=== PATIENT | male | born 1970 | race Caucasian/White ===

== ENCOUNTER 2021-07-16 14:08 | Outpatient (CLI) | payer MEDICAID | END 2021-07-16 14:09 | disposition short-term general hospital (02) | LOC: EMS 14:08 | DX: M54.50 Low back pain, unspecified (principal); R10.2 Pelvic and perineal pain; M25.551 Pain in right hip; S81.811A Laceration without foreign body, right lower leg, initial encounter; S00.81XA Abrasion of other part of head, initial encounter; R55 Syncope and collapse; V02.00XA Pedestrian on foot injured in collision with two- or three-wheeled motor vehicle in nontraffic accident, initial encounter; Y92.39 Other specified sports and athletic area as the place of occurrence of the external cause | CPT/HCPCS: A0425; A0429; A0999 ==

== ENCOUNTER 2022-01-15 07:42 | Outpatient (CLI) | payer MEDICAID | END 2022-01-15 07:43 | disposition critical access hospital (66) | LOC: EMS 07:42 | DX: R11.2 Nausea with vomiting, unspecified (principal); R10.84 Generalized abdominal pain; R10.817 Generalized abdominal tenderness; R53.1 Weakness; R15.9 Full incontinence of feces | CPT/HCPCS: A0425; A0429; A0999 ==

== ENCOUNTER 2022-01-15 08:12 | Observation (INO) | payer MEDICAID ==
[2022-01-15] MEDS ORDERED: HYDROmorphone 1 MG/ML CARPUJECT IVP STA ×2 (08:22→12:03)
[2022-01-15] MEDS ORDERED: ONDANSETRON 4 MG/2 ML VIAL IVP STA ×2 (08:22→13:22)
[2022-01-15] MEDS ORDERED: SODIUM CHLORIDE 0.9% 1,000 ML IV STA (08:22)
--- NOTE | 2022-01-15 08:22 | ED Physician Documentation ---
PD HPI ABD PAIN - Stated complaint Stated Complaint: N/V - History obtained from History obtained from: Patient - History of Present Illness Timing - onset: Last night (Diffuse abdominal pain with N/V and diarrhea starting last night at 8pm. multiple emesis and loose stools. unable to keep anything down. Hx of recent pelvic Fx spent 3 months at [facility], colon cancer, and inflam bowel disease.) Timing - duration: Hours (12) Timing - details: Abrupt onset, Still present Quality: Cramping, Aching, Pain Location: All over / everywhere Radiation: Lower back. No: Chest, Left flank, Right flank Improved by: Vomiting Worsened by: Eating. No: Breathing, Palpation Associated symptoms: Nausea, Vomiting. No: Fever, Hematemesis, Diarrhea (but has had small amounts of loose stool.), Constipation, Hematochezia Similar symptoms before: Diagnosis (had similar brief episodes for few hours at a time in the past without specific diagnosis of the episodes. But has had colonscopy findings suggestive of Crohns disease in the past year. Has GI in [facility]. Planned repeat colonoscopy in about a month. No current treatments for IBD.) Recently seen: Admitted (had pelvic fracture early 2021 and was in [facility]. There was found to have colon CA that was treated with polypectomy and colonoscopic colon wall resection. Since then has davis abd cramping episodes with Dx of likely Crohns by that colonoscopy.) Review of Systems Constitutional: denies: Fever, Chills Nose: denies: Rhinorrhea / runny nose, Congestion Throat: denies: Sore throat Respiratory: denies: Cough GI: reports: Abdominal Pain, Abdominal Swelling, Nausea, Vomiting. denies: Constipation, Diarrhea, Hematemesis : denies: Dysuria, Frequency Skin: denies: Rash Musculoskeletal: denies: Neck pain, Back pain PD PAST MEDICAL HISTORY - Past Medical History Cardiovascular: None Respiratory: None Neuro: None Endocrine/Autoimmune: None GI: Crohn's disease - Present Medications Home Medications: Ambulatory Orders Medication Instructions Recorded Confirmed Apixaban [Eliquis] 5 mg PO BID 01/15/22 01/15/22 Atorvastatin Calcium 40 mg PO QPM 01/15/22 01/15/22 Escitalopram Oxalate [Lexapro] 20 mg PO DAILY 01/15/22 01/15/22 Lisinopril [Zestril] 40 mg PO DAILY 01/15/22 01/15/22 amLODIPine [Norvasc] 5 mg PO DAILY 01/15/22 01/15/22 - Allergies Allergies/Adverse Reactions: Allergies Allergy/AdvReac Type Severity Reaction Status Date / Time No Known Drug Allergies Allergy Verified 01/15/22 08:24 PD ED PE NORMAL - Vitals Vital signs reviewed: Yes - General General: Alert and oriented X 3, Well developed/nourished, Other (he appears in considerable discomfort due to abd pain, and is having emesis of small amounts stomach saliva/bile. No noted blood. ) - HEENT HEENT: Pharynx benign - Neck Neck: Supple, no meningeal sign, No adenopathy - Cardiac Cardiac: RRR, No murmur - Respiratory Respiratory: Clear bilaterally - Abdomen Abdomen: Soft, Other (tender difusely, but most in LLQ area. Abd moderately distended. Umbilical hernia soft and easily reducible, without tenderness. ). No: Normal bowel sounds (increased diffusely) - Male Male : Deferred - Rectal Rectal: Deferred - Back Back: No CVA TTP - Derm Derm: Normal color, Warm and dry Results - Vitals Vitals: Vital Signs - 24 hr 01/15/22 01/15/22 01/15/22 08:24 09:12 11:00 Temperature 36.9 C Heart Rate 96 100 91 Respiratory 20 18 18 Rate Blood Pressure 126/86 H 90/61 149/96 H O2 Saturation 97 97 96 01/15/22 13:00 Temperature Heart Rate 86 Respiratory 16 Rate Blood Pressure 140/90 H O2 Saturation 94 Oxygen O2 Source Room air - Labs Labs: Laboratory Tests 01/15/22 01/15/22 01/15/22 08:50 08:50 08:50 WBC 16.9 H RBC 4.72 Hgb 12.8 L Hct 40.9 L MCV 86.7 MCH 27.1 MCHC 31.3 L RDW 15.3 H Plt Count 369 MPV 9.0 Neut # (Auto) 15.1 H Lymph # (Auto) 0.8 L Power # (Auto) 0.9 Eos # (Auto) 0.0 Baso # (Auto) 0.0 Absolute Nucleated RBC 0.00 Nucleated RBC % 0.0 Sodium 138 Potassium 4.0 Chloride 101 Carbon Dioxide 25 Anion Gap 12.0 BUN 15 Creatinine 1.1 Estimated GFR (MDRD) 71 L Glucose 136 H Lactic Acid 1.7 Calcium 8.3 L Magnesium 1.9 Total Bilirubin 1.4 H AST 12 ALT 13 Alkaline Phosphatase 86 Total Protein 5.8 L Albumin 2.8 L Globulin 3.0 Albumin/Globulin Ratio 0.9 L Lipase 23 Urine Color Urine Clarity Urine pH Ur Specific Frederick Urine Protein Urine Glucose (UA) Urine Ketones Urine Occult Blood Urine Nitrite Urine Bilirubin Urine Urobilinogen Ur Leukocyte Esterase Ur Microscopic Review Urine Culture Comments 01/15/22 12:30 WBC RBC Hgb Hct MCV MCH MCHC RDW Plt Count MPV Neut # (Auto) Lymph # (Auto) Power # (Auto) Eos # (Auto) Baso # (Auto) Absolute Nucleated RBC Nucleated RBC % Sodium Potassium Chloride Carbon Dioxide Anion Gap BUN Creatinine Estimated GFR (MDRD) Glucose Lactic Acid Calcium Magnesium Total Bilirubin AST ALT Alkaline Phosphatase Total Protein Albumin Globulin Albumin/Globulin Ratio Lipase Urine Color YELLOW Urine Clarity CLEAR Urine pH 5.5 Ur Specific Frederick 1.015 Urine Protein NEGATIVE Urine Glucose (UA) NEGATIVE Urine Ketones NEGATIVE Urine Occult Blood NEGATIVE Urine Nitrite NEGATIVE Urine Bilirubin NEGATIVE Urine Urobilinogen 0.2 (NORMAL) Ur Leukocyte Esterase NEGATIVE Ur Microscopic Review NOT INDICATED Urine Culture Comments NOT INDICATED - Rads (name of study) abd/pelvic CT Radiology: Prelim report reviewed (dilated loops air/fluid proximal small bowel c/w partial obstruction, and thickened wall distal small bowel c/w inflammatory enteritis.), See rad report PD MEDICAL DECISION MAKING - ED course Complexity details: reviewed results (partial obstruction with segment of enteritis/wall thickening. with history of Crohns likely, would presume inflammatory flare with pseudo-obstruction. ), considered differential, d/w family ED course: The patient presented with abdominal pain and cramping with nausea and vomiting. History of possible Crohn's versus inflammatory bowel disease. Has seen gastroenterology at [facility] once and is planned for repeat colonoscopy in the near future. Has had some episodes briefly of similar symptoms but today was more significant and lasting. He is improved with some IV fluids pain and nausea medicines. CT scan showed a partial obstruction with lower bowel inflammation. Presume a pseudoobstruction from inflammatory bowel disease. Does not appear surgical per se. He was offered some juice and water to drink after symptoms had improved. However this caused increased pain and cramps and nausea again. I think you will need further time for resolution of symptoms along with anti-inflammatories etc. I talked with the hospitalist. Departure - Departure Disposition: ED Place in Observation Clinical Impression: IBD (inflammatory bowel disease), Nausea and vomiting, Partial intestinal obstruction Condition: Stable Record reviewed to determine appropriate education?: Yes Discharge Date/Time: 01/15/22 15:05
[2022-01-15] MEDS ORDERED: IOPAMIDOL-300 100 ML VIAL ONE (08:47)
[2022-01-15 08:55] LABS: BASOPHILS % (AUTO) 0.2 %; HCT - HEMATOCRIT 40.9 % (42.0-52.0); HGB - HEMOGLOBIN 12.8 g/dL (14.0-18.0); LYMPHOCYTES # (AUTO) 0.8 10^3/uL (1.5-3.5); LYMPHOCYTES % (AUTO) 4.9 %; MEAN CORPUSCULAR HEMOGLOBIN 27.1 pg (27.0-31.0); MEAN CORPUSCULAR HGB CONC 31.3 g/dL (32.0-36.0); MEAN CORPUSCULAR VOLUME 86.7 fL (80.0-94.0); MONOCYTES # (AUTO) 0.9 10^3/uL (0.0-1.0); MONOCYTES % (AUTO) 5.3 %; NEUTROPHILS # (AUTO) 15.1 10^3/uL (1.5-6.6); NEUTROPHILS % (AUTO) 89.1 %; PLT - PLATELET COUNT 369 10^3/uL (130-450); RED BLOOD COUNT 4.72 10^6/uL (4.70-6.10); RED CELL DISTRIBUTION WIDTH 15.3 % (12.0-15.0); WHITE BLOOD COUNT 16.9 x10^3/uL (4.8-10.8)
[2022-01-15 09:11] LABS: ALBUMIN 2.8 g/dL (3.2-5.5); ALBUMIN/GLOBULIN RATIO 0.9 (1.0-2.2); BILIRUBIN,TOTAL 1.4 mg/dL (0.2-1.0); CALCIUM 8.3 mg/dL (8.5-10.3); CREATININE 1.1 mg/dL (0.6-1.2); MAGNESIUM 1.9 mg/dL (1.7-2.8); TOTAL PROTEIN 5.8 g/dL (6.7-8.2)
--- NOTE | 2022-01-15 11:14 | CT Report ---
PROCEDURE: Abdomen/Pelvis W INDICATIONS: abd pain/vomiting CONTRAST: IV CONTRAST: Isovue 300 ml: 100 PO CONTRAST: *NO PO CONTRAST TECHNIQUE: After the administration of IV contrast, 5 mm thick sections acquired from the diaphragms to the symp hysis. 5 mm thick coronal and sagittal reformats were acquired. For radiation dose reduction, the f ollowing was used: automated exposure control, adjustment of mA and/or kV according to patient size. COMPARISON: None. FINDINGS: Image quality: Excellent. ABDOMEN: Lung bases: Lung bases are clear. Heart size is normal. Solid organs: Liver is enlarged measuring 22.7 cm with steatosis. The spleen is normal in size and e nhancement. Gallbladder is unremarkable Biliary system is non dilated. Pancreas enhances normally. No adrenal nodules. Kidneys demonstrate normal size and enhancement, without hydronephrosis. Peritoneum and bowel: Bowel loops demonstrate fluid-filled prominence measuring 4.8 cm in greatest A P dimension. There is appearance of thickening with inflammatory change within the small bowel in the right lower quadrant. No free air or free fluid. Nodes and vessels: No retroperitoneal or mesenteric adenopathy by size criteria. Aorta and inferior vena cava are normal in size. Miscellaneous: Fat-containing ventral hernia is present with rectus diastases measuring 5.3 cm. PELVIS: Genitourinary: Bladder wall thickness is normal. Miscellaneous: No inguinal hernias or adenopathy. Bones: No suspicious bony lesions. No vertebral body compression fractures. IMPRESSION: Dilated fluid-filled loops of small bowel most consistent with partial small bowel obstruction. Short segment loop of thickening with inflammatory change within the small bowel in the right lower quadra nt possibly related to enteritis/inflammatory bowel disease. Reviewed by: Meryl Alvarez MD on 01/15/2022 10:13 AM L[employer]IA Approved by: Meryl Alvarez MD on 01/15/2022 10:13 AM LIGIA Station ID: [id number]
[2022-01-15] MEDS ORDERED: KETOROLAC 30 MG/ML VIAL IVP STA (11:21)
[2022-01-15] MEDS ORDERED: DEXAMETHASONE 10 MG/ML VIAL IVP STA (12:03)
[2022-01-15] MEDS ORDERED: ACETAMINOPHEN 325 MG TABLET PO PRN (13:26)
[2022-01-15] MEDS ORDERED: ONDANSETRON 4 MG/2 ML VIAL IVP PRN (13:26)
[2022-01-15] MEDS ORDERED: ONDANSETRON ODT 4 MG TABLET TL PRN (13:26)
[2022-01-15] MEDS ORDERED: SODIUM CHLORIDE FLUSH 0.9% 10 ML SYRINGE IVP PRN (13:26)
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
[2022-01-15 13:55] LABS: BILIRUBIN,URINE NEGATIVE (NEGATIVE); GLUCOSE, URINE (UA) NEGATIVE (NEGATIVE); KETONES,URINE (UA) NEGATIVE (NEGATIVE); LEUKOCYTE ESTERASE, URINE NEGATIVE (NEGATIVE); NITRITE,URINE NEGATIVE (NEGATIVE); OCCULT BLOOD,URINE NEGATIVE (NEGATIVE); PH,URINE 5.5 PH (5.0-7.5); PROTEIN,URINE NEGATIVE (NEGATIVE); UROBILINOGEN,URINE 0.2 (NORMAL) E.U./dL (NORMAL)
[2022-01-15 13:57] LABS: CLARITY,URINE CLEAR (CLEAR)
[2022-01-15 14:33] LABS: B. PARAPERTUSSIS- RESP PCR PAN NOT DETECTED; B. PERTUSSIS- RESP PCR PANEL NOT DETECTED; C. PNEUMONIAE- RESP PCR PANEL NOT DETECTED; CORONAVIRUS 229E-RESP PCR NOT DETECTED; CORONAVIRUS HKU1-RESP PCR NOT DETECTED; CORONAVIRUS NL63-RESP PCR NOT DETECTED; CORONAVIRUS OC43-RESP PCR NOT DETECTED; HUMAN METAPNEUMOVIRUS NOT DETECTED; INFLUENZA A- RESP PCR PANEL NOT DETECTED; INFLUENZA B - RESP PCR PANEL NOT DETECTED; M. PNEUMONIAE- RESP PCR PANEL NOT DETECTED; PARAINFLUENZA VIRUS 1 NOT DETECTED; PARAINFLUENZA VIRUS 2 NOT DETECTED; PARAINFLUENZA VIRUS 3 NOT DETECTED; PARAINFLUENZA VIRUS 4 NOT DETECTED; RHINOVIRUS/ENTEROVIRUS NOT DETECTED; RSV- RESP PCR PANEL NOT DETECTED; SARS-CoV-2 -RESP PCR PANEL NOT DETECTED
[2022-01-15] MEDS ORDERED: IOPAMIDOL-300 100 ML VIAL IVP ONE (14:39)
[2022-01-15] MEDS: DEXTROSE 5%-0.9% NACL 1,000 ML IV SCH ×2 (15:11→23:57)
--- NOTE | 2022-01-15 15:47 | PHARMACY PROGRESS NOTE ---
- Best Possible Medication History Admit Date and Time: 01/15/22 1326 Processed by: Pharmacy Medication History completed: Yes Patient Interview: Completed Secondary Source(s): Pharmacy records, Insurance records As the person ultimately responsible for medication therapy, providers are able to order a medication from an existing home medication list in [facility] via the "Reconcile Routine" prior to Confirmation of that medication by child support specialist. Such practice is discouraged except when the physician, in their clinical judgment, deems that a medical need exists for a medication without regard to previous use.
[2022-01-15] MEDS: MORPHINE 2 MG/ML CARPUJECT IVP PRN ×2 (16:21→21:55)
[2022-01-15] MEDS: SODIUM CHLORIDE FLUSH 0.9% 10 ML SYRINGE IVP SCH ×2 (16:21→23:58)
[2022-01-15] MEDS: APIXABAN 5 MG TABLET PO SCH (20:35)
[2022-01-15] MEDS ORDERED: ATORVASTATIN 40 MG TABLET PO SCH (21:00)
[2022-01-16 08:47] LABS: HCT - HEMATOCRIT 36.5 % (42.0-52.0); HGB - HEMOGLOBIN 11.2 g/dL (14.0-18.0); LYMPHOCYTES % (AUTO) 13.3 %; MEAN CORPUSCULAR HEMOGLOBIN 26.9 pg (27.0-31.0); MEAN CORPUSCULAR HGB CONC 30.7 g/dL (32.0-36.0); MEAN CORPUSCULAR VOLUME 87.7 fL (80.0-94.0); MONOCYTES # (AUTO) 0.7 10^3/uL (0.0-1.0); MONOCYTES % (AUTO) 9.8 %; NEUTROPHILS # (AUTO) 5.5 10^3/uL (1.5-6.6); NEUTROPHILS % (AUTO) 76.8 %; PLT - PLATELET COUNT 333 10^3/uL (130-450); RED BLOOD COUNT 4.16 10^6/uL (4.70-6.10); RED CELL DISTRIBUTION WIDTH 15.2 % (12.0-15.0); WHITE BLOOD COUNT 7.1 x10^3/uL (4.8-10.8)
[2022-01-16] MEDS: APIXABAN 5 MG TABLET PO SCH (08:47)
[2022-01-16] MEDS: SODIUM CHLORIDE FLUSH 0.9% 10 ML SYRINGE IVP SCH (08:51)
[2022-01-16] MEDS ORDERED: lisinopriL 20 MG TABLET PO SCH (09:00)
[2022-01-16] MEDS ORDERED: ESCITALOPRAM 10 MG TABLET PO SCH (09:00)
[2022-01-16 09:07] LABS: CALCIUM 8.1 mg/dL (8.5-10.3); CREATININE 0.8 mg/dL (0.6-1.2); POTASSIUM 4.3 mmol/L (3.5-5.0)
[2022-01-16] MEDS: DEXTROSE 5%-0.9% NACL 1,000 ML IV SCH (10:28)
[2022-01-16] MEDS: MORPHINE 2 MG/ML CARPUJECT IVP PRN (12:45)
[2022-01-16] MEDS ORDERED: oxyCODONE 5 MG TABLET PO PRN (13:44)
--- NOTE | 2022-01-16 13:48 | Discharge Plan ---
Discharge Plan Problem Reviewed?: Yes Disposition: Home, Self Care Condition: Stable Prescriptions: oxyCODONE [Roxicodone] 5 mg PO Q4HR PRN #20 tablet PRN Reason: Pain predniSONE [Deltasone] 30 mg PO DAILYWM 7 Days #14 tablet Diet: Soft Activity Restrictions: Activity as Tolerated Shower Restrictions: No (fall precaution) Instruction Topics: Obstruction Sm Bowel Health Concerns: You tolerated diet and you had twice bowel movements. Your partial bowel obstruction seems resolved. Your CT of abdomen show Inflammatory change. After you was given steroid by ER, you feel much better. You are prescribed short period of low dosage steroid now. our social media assistant help you make appointment for you to see your GI on 01/24/22, please followup with your GI for further evaluation and study. You may resume your home medications. Plan of Treatment: as the above Care Goals: Stabilization and improvement of your medical conditions Assessment: Discussed the care plan with you, answered your questions, you understood and agreed Additional Instructions or Follow Up instructions: You may follow-up with your PCP in 1 week, follow-up with your usability strategist next week 01/24/22. Should your symptoms return or worsen, you may present to the ER or call 911 for help No Smoking: If you smoke, Please STOP! Call for help.
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
[2022-01-16 15:36] VITALS: BP 112/60
[2022-01-17] MEDS ORDERED: predniSONE 20 MG TABLET PO SCH (08:00)
== END 2022-01-16 16:30 | disposition home or self-care (01) ==
LOC: EDUNIT# → ED 08:12 → MS2 13:26
PROVIDERS: ADMIT Specialist; ATTEND Nurse Practitioner Gerontology
DX: K56.600 Partial intestinal obstruction, unspecified as to cause (principal); M25.651 Stiffness of right hip, not elsewhere classified; K42.9 Umbilical hernia without obstruction or gangrene; K52.9 Noninfective gastroenteritis and colitis, unspecified; D68.2 Hereditary deficiency of other clotting factors; R26.89 Other abnormalities of gait and mobility; R63.4 Abnormal weight loss; K08.109 Complete loss of teeth, unspecified cause, unspecified class; I10 Essential (primary) hypertension; E78.00 Pure hypercholesterolemia, unspecified; Z20.822 Contact with and (suspected) exposure to COVID-19; Z68.42 Body mass index [BMI] 45.0-49.9, adult; Z79.01 Long term (current) use of anticoagulants; Z79.899 Other long term (current) drug therapy; Z85.038 Personal history of other malignant neoplasm of large intestine; Z86.711 Personal history of pulmonary embolism; Z87.81 Personal history of (healed) traumatic fracture; Z87.891 Personal history of nicotine dependence
CPT/HCPCS: 36415; 74177; 80048; 80053; 81003; 82272; 83605; 83690; 83735; 85025; 87045; 87046; 87427; 87493; 87633; 96361; 96374; 96375; 96376; 97161; 99284; 99285; A9270; G0378; J1170; Q9967; 81001; 87086

== ENCOUNTER 2022-02-02 07:59 | Inpatient (IN) | payer MEDICAID ==
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
[2022-02-02] MEDS ORDERED: HYDROmorphone 1 MG/ML CARPUJECT IVP STA ×3 (08:23→12:50)
[2022-02-02] MEDS ORDERED: ONDANSETRON 4 MG/2 ML VIAL IVP STA (08:23)
[2022-02-02] MEDS ORDERED: KETOROLAC 15 MG/ML VIAL IVP STA (08:23)
[2022-02-02] MEDS ORDERED: SODIUM CHLORIDE 0.9% 1,000 ML IV STA ×2 (08:24→12:36)
[2022-02-02 08:38] LABS: BASOPHILS % (AUTO) 0.2 %; EOSINOPHILS # (AUTO) 0.1 10^3/uL (0.0-0.7); EOSINOPHILS % (AUTO) 0.4 %; HCT - HEMATOCRIT 42.9 % (42.0-52.0); HGB - HEMOGLOBIN 13.5 g/dL (14.0-18.0); LYMPHOCYTES # (AUTO) 1.1 10^3/uL (1.5-3.5); LYMPHOCYTES % (AUTO) 5.6 %; MEAN CORPUSCULAR HEMOGLOBIN 27.3 pg (27.0-31.0); MEAN CORPUSCULAR HGB CONC 31.5 g/dL (32.0-36.0); MEAN CORPUSCULAR VOLUME 86.7 fL (80.0-94.0); MONOCYTES # (AUTO) 1.1 10^3/uL (0.0-1.0); MONOCYTES % (AUTO) 5.5 %; NEUTROPHILS # (AUTO) 17.3 10^3/uL (1.5-6.6); NEUTROPHILS % (AUTO) 87.9 %; PLT - PLATELET COUNT 434 10^3/uL (130-450); RED BLOOD COUNT 4.95 10^6/uL (4.70-6.10); RED CELL DISTRIBUTION WIDTH 15.8 % (12.0-15.0); WHITE BLOOD COUNT 19.7 x10^3/uL (4.8-10.8)
[2022-02-02] MEDS ORDERED: IOVERSOL 320 100 ML VIAL IVP ONE ×2 (08:40→09:18)
[2022-02-02 08:46] LABS: ALBUMIN 3.7 g/dL (3.2-5.5); BILIRUBIN,TOTAL 1.9 mg/dL (0.2-1.0); CALCIUM 9.4 mg/dL (8.5-10.3); CREATININE 1.1 mg/dL (0.6-1.2); POTASSIUM 3.8 mmol/L (3.5-5.0); TOTAL PROTEIN 7.4 g/dL (6.7-8.2)
[2022-02-02 08:49] LABS: INR 1.3 (0.8-1.2)
--- NOTE | 2022-02-02 09:39 | CT Report ---
PROCEDURE: Abdomen/Pelvis W INDICATIONS: Abdominal pain, acute, nonlocalized CONTRAST: IV CONTRAST: Optiray 320 ml: 100 PO CONTRAST: *NO PO CONTRAST TECHNIQUE: After the administration of contrast, 5 mm thick sections acquired from the diaphragms to the sym physis. 5 mm thick coronal and sagittal reformats were acquired. For radiation dose reduction, the following was used: automated exposure control, adjustment of mA and/or kV according to patient size . COMPARISON: None. FINDINGS: Image quality: Excellent. ABDOMEN: Lung bases: Lung bases are clear. Heart size is normal. Solid organs: Liver and spleen are normal in size and enhancement. Gallbladder is normal. Biliary system is non dilated. Pancreas enhances normally. No adrenal nodules. 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 Peritoneum and bowel: Bowel loops demonstrate fluid-filled prominence measuring up to 5 cm in greates t AP dimension, unchanged compared to 01/15/2022 however now the large bowel is decompressed consistent with bowel obstruction. Nodes and vessels: Multiple mesenteric lymph nodes are seen, the largest measuring 4.3 x 2.3 cm, larg er compared to the prior CT. Aorta and inferior vena cava are normal in size. Miscellaneous: No ventral hernias. PELVIS: Genitourinary: Bladder wall thickness is normal. Miscellaneous: Fat-containing periumbilical hernia. Bones: No suspicious bony lesions. No vertebral body compression fractures. There is a kathy spanning the anterior superior iliac spines of the pelvi s and screws traversing the sacroiliac joint for stabilization. IMPRESSION: 1. Findings are most consistent with a small bowel obstruction with a transition point in the right l ower quadrant at the distal ileum. 2. Multiple enlarged mesenteric lymph nodes in the right lower quadrant, the largest measuring 4.3 x 2.0 cm. Reviewed by: Randy Crawford on 02/02/2022 9:38 AM PDT Approved by: Randy Crawford on 02/02/2022 9:38 AM PDT Station ID: [id number]
[2022-02-02] MEDS ORDERED: DEXAMETHASONE 10 MG/ML VIAL IVP STA (09:59)
[2022-02-02 12:25] LABS: GLUCOSE, URINE (UA) NEGATIVE (NEGATIVE); KETONES,URINE (UA) NEGATIVE (NEGATIVE); LEUKOCYTE ESTERASE, URINE NEGATIVE (NEGATIVE); NITRITE,URINE NEGATIVE (NEGATIVE); OCCULT BLOOD,URINE NEGATIVE (NEGATIVE); PH,URINE 5.5 PH (5.0-7.5); PROTEIN,URINE TRACE mg/dL (NEGATIVE); UROBILINOGEN,URINE 0.2 (NORMAL) E.U./dL (NORMAL)
[2022-02-02 12:26] LABS: CLARITY,URINE CLEAR (CLEAR)
[2022-02-02 12:32] LABS: BILIRUBIN,URINE NEGATIVE (NEGATIVE); ICTOTEST,URINE NEGATIVE
[2022-02-02] MEDS ORDERED: PROCHLORPERAZINE 10 MG/2 ML VIAL IVP PRN (13:25)
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
[2022-02-02] MEDS: LACTATED RINGERS 1,000 ML IV SCH (15:03)
[2022-02-02] MEDS: HYDROmorphone 0.5 MG/0.5 ML SYRINGE IVP PRN ×4 (15:41→23:36)
[2022-02-02] MEDS: ONDANSETRON 4 MG/2 ML VIAL IVP PRN (15:42)
[2022-02-02] MEDS: SODIUM CHLORIDE FLUSH 0.9% 10 ML SYRINGE IVP SCH ×2 (16:42→23:22)
[2022-02-02] MEDS: APIXABAN 5 MG TABLET PO SCH (20:59)
[2022-02-03] MEDS: HYDROmorphone 0.5 MG/0.5 ML SYRINGE IVP PRN ×5 (02:25→20:52)
[2022-02-03] MEDS: LACTATED RINGERS 1,000 ML IV SCH ×2 (02:25→14:21)
[2022-02-03] MEDS ORDERED: CALCIUM CARBONATE CHEW 500 MG TABLET PO PRN (08:06)
[2022-02-03] MEDS: amLODIPine 5 MG TABLET PO SCH (08:16)
[2022-02-03] MEDS: ESCITALOPRAM 10 MG TABLET PO SCH (08:16)
[2022-02-03] MEDS: PANTOPRAZOLE 40 MG TABLET PO SCH (08:17)
[2022-02-03] MEDS: SODIUM CHLORIDE FLUSH 0.9% 10 ML SYRINGE IVP SCH ×2 (08:17→17:14)
[2022-02-03] MEDS: APIXABAN 5 MG TABLET PO SCH ×2 (08:17→20:52)
--- NOTE | 2022-02-03 12:06 | PHARMACY PROGRESS NOTE ---
- Best Possible Medication History Admit Date and Time: 02/02/22 9572 Processed by: Nursing Medication History completed: Yes As the person ultimately responsible for medication therapy, providers are able to order a medication from an existing home medication list in [facility] via the "Reconcile Routine" prior to Confirmation of that medication by support team member. Such practice is discouraged except when the physician, in their clinical judgment, deems that a medical need exists for a medication without regard to previous use.
--- NOTE | 2022-02-03 15:38 | PROVIDER PROGRESS NOTE ---
Assessment/Plan - Problem List (1) Small bowel obstruction Assessment/Plan: His [facility] Leadperson felt that his condition is probably not Crohn's disease thus steroids were not advised to be continued by GI yesterday. Since he had liquid BM plus passed gas, and bowel sounds were audible, we tried to advance the diet to clear liquids for lunch today and he developed crampy abdominal pain. He does wish to try to be advanced to pureed food for dinner and will remain in Observation status if he needs to remain here another overnight No ng tube was placed as there was no persistent vomiting Continue iv fluids, and allow oral meds We have ordered Dilaudid iv prn pain. Continue anti emetics prn. (2) IBD (inflammatory bowel disease) Conclusion/Plan: This is the Dx he carries, however, his GI was spoken to by Dr Albert from our ER, and said it is not Crohn's disease and no steroids were advised to be ordered for this current admission. Because of the findings at colonoscopy, done just 5 days ago, an elective resection by surgery is planned in the future for this patient. (3) Factor V Leiden Conclusion/Plan: We arecontinuing his Eliquis dose (4) Hypertension Conclusion/Plan: He is prescribed to take Losartan and Amlodipine. We jhave resumed Amlodipine only, with parameters for holding it, given that he is not eating and BP is not very high Qualifiers: Hypertension type: primary hypertension Qualified Code(s): I10 - Essential (primary) hypertension (5) Decreased mobility of joint of right side of pelvis Conclusion/Plan: Will give pain meds if needed (6) Umbilical hernia without obstruction or gangrene Conclusion/Plan: This is a chronic finding and the hernia is reducible (7) Morbid obesity with BMI of 45.0-49.9, adult Conclusion/Plan: As per Hx - Current Meds Current Meds: Current Medications Generic Name Dose Route Start Last Admin Trade Name Freq PRN Reason Stop Dose Admin Amlodipine Besylate 5 mg 02/03/22 09:00 02/03/22 08:16 Amlodipine 5 Mg Tablet PO 5 mg DAILY GAEL Administration Apixaban 5 mg 02/02/22 21:00 02/03/22 08:17 Apixaban 5 Mg Tablet PO 5 mg BID GAEL Administration Escitalopram Oxalate 20 mg 02/03/22 09:00 02/03/22 08:16 Escitalopram 10 Mg Tablet PO 20 mg DAILY GAEL Administration Hydromorphone HCl 0.5 mg 02/02/22 13:25 02/03/22 13:39 Hydromorphone 0.5 Mg/0.5 Ml Syringe IVP 0.5 mg Q2H PRN Administration Pain 8 to 10 Lactated Ringer's 1,000 mls @ 83.33 mls/hr 02/02/22 14:00 02/03/22 14:21 Lr IV 83.33 mls/hr .Q12H1M GAEL Administration Ondansetron HCl 4 mg 02/02/22 13:25 02/02/22 15:42 Ondansetron 4 Mg/2 Ml Vial IVP 4 mg Q6HR PRN Administration Nausea / Vomiting Pantoprazole Sodium 40 mg 02/03/22 08:06 02/03/22 08:17 Pantoprazole 40 Mg Tablet PO 40 mg QDAC GAEL Administration Sodium Chloride 10 ml 02/02/22 17:00 02/03/22 08:17 Sodium Chloride Flush 0.9% 10 Ml Syringe IVP Not Given 0100,0900,1700 GAEL - Lab Result Fish Bone Diagrams: 02/02/22 08:25 02/02/22 08:25 - Additional Planning My Orders: My Active Orders 02/02/22 17:00 Sodium Chloride Flush 0.9% [Normal Saline Flush 0.9%] 10 ml IVP 0100,0900,1700 02/02/22 21:00 Apixaban [Eliquis] 5 mg PO BID 02/03/22 08:06 Calcium Carbonate [Tums] 500 mg PO TID PRN Pantoprazole [Protonix] 40 mg PO QDAC 02/03/22 09:00 Escitalopram [Lexapro] 20 mg PO DAILY amLODIPine [Norvasc] 5 mg PO DAILY 02/03/22 Lunch Clear Liquid Diet [DIET] 02/03/22 Dinner DIET [Dysphagia - Puree] [DIET] Subjective - Subjective Patient Reports: Feeling Better (No nausea, vomited "just a handful of acidy stomach material", he passed gas at midnight and had 1 small watery BM in the a.m.) Objective Vital Signs: Vital Signs - 24 hr 02/02/22 02/02/22 02/02/22 15:55 20:59 22:46 Temperature 37.0 C 36.9 C 36.9 C Heart Rate [ 83 73 76 Brachial] Respiratory 1 L 21 17 Rate Blood Pressure 119/68 124/70 [Right Brachial artery] O2 Saturation 96 94 97 02/02/22 02/03/22 02/03/22 23:28 07:34 12:23 Temperature 36.3 C L 36.5 C Heart Rate [ 78 67 75 Brachial] Respiratory 16 19 19 Rate Blood Pressure 129/83 H 123/77 93/79 [Right Brachial artery] O2 Saturation 96 99 95 Oxygen O2 Source Room air I&O (Last 24 Hrs): Intake and Output Totals x24h 02/01/22 02/02/22 02/03/22 23:59 23:59 23:59 Intake Total 1462.5 2301.589 Output Total 600 825 Balance 862.5 1476.589 General: Alert, Oriented x3 HEENT: Mucous membr. moist/pink Neck: Supple, No JVD Neuro: Alert, Non Focal Cardiovascular: Regular rate Respiratory: No respiratory distress Abdomen: Other (Obese vs distended, non-tender, bowel spounds hyperactive in RLQ, no bowel sounds in other quadrants) Extremities: No clubbing, No edema, No tenderness/swelling - Results Results: Laboratory Results WBC 19.7 x10^3/uL (4.8-10.8) H 02/02/22 08:25 RBC 4.95 10^6/uL (4.70-6.10) 02/02/22 08:25 Hgb 13.5 g/dL (14.0-18.0) L 02/02/22 08:25 Hct 42.9 % (42.0-52.0) 02/02/22 08:25 MCV 86.7 fL (80.0-94.0) 02/02/22 08:25 MCH 27.3 pg (27.0-31.0) 02/02/22 08:25 MCHC 31.5 g/dL (32.0-36.0) L 02/02/22 08:25 RDW 15.8 % (12.0-15.0) H 02/02/22 08:25 Plt Count 434 10^3/uL (130-450) 02/02/22 08:25 MPV 9.0 fL (7.4-11.4) 02/02/22 08:25 Neut # (Auto) 17.3 10^3/uL (1.5-6.6) H 02/02/22 08:25 Lymph # (Auto) 1.1 10^3/uL (1.5-3.5) L 02/02/22 08:25 [place] # (Auto) 1.1 10^3/uL (0.0-1.0) H 02/02/22 08:25 Eos # (Auto) 0.1 10^3/uL (0.0-0.7) 02/02/22 08:25 Baso # (Auto) 0.0 10^3/uL (0.0-0.1) 02/02/22 08:25 Absolute Nucleated RBC 0.00 x10^3/uL 02/02/22 08:25 Nucleated RBC % 0.0 /100WBC 02/02/22 08:25 PT 14.0 secs (9.9-12.6) H 02/02/22 08:36 INR 1.3 (0.8-1.2) H 02/02/22 08:36 Sodium 135 mmol/L (135-145) 02/02/22 08:25 Potassium 3.8 mmol/L (3.5-5.0) 02/02/22 08:25 Chloride 98 mmol/L (101-111) L 02/02/22 08:25 Carbon Dioxide 25 mmol/L (21-32) 02/02/22 08:25 Anion Gap 12.0 (6-13) 02/02/22 08:25 BUN 13 mg/dL (6-20) 02/02/22 08:25 Creatinine 1.1 mg/dL (0.6-1.2) 02/02/22 08:25 Estimated GFR (MDRD) 71 (>89) L 02/02/22 08:25 Glucose 139 mg/dL (70-100) H 02/02/22 08:25 Lactic Acid 1.8 mmol/L (0.5-2.2) 02/02/22 08:36 Calcium 9.4 mg/dL (8.5-10.3) 02/02/22 08:25 Magnesium 2.0 mg/dL (1.7-2.8) 02/02/22 08:25 Total Bilirubin 1.9 mg/dL (0.2-1.0) H 02/02/22 08:25 AST 14 IU/L (10-42) 02/02/22 08:25 ALT 19 IU/L (10-60) 02/02/22 08:25 Alkaline Phosphatase 87 IU/L (42-121) 02/02/22 08:25 Total Protein 7.4 g/dL (6.7-8.2) 02/02/22 08:25 Albumin 3.7 g/dL (3.2-5.5) 02/02/22 08:25 Globulin 3.7 g/dL (2.1-4.2) 02/02/22 08:25 Albumin/Globulin Ratio 1.0 (1.0-2.2) 02/02/22 08:25 Lipase 23 U/L (22-51) 02/02/22 08:25 Urine Color DARK YELLOW 02/02/22 12:18 Urine Clarity CLEAR (CLEAR) 02/02/22 12:18 Urine pH 5.5 PH (5.0-7.5) 02/02/22 12:18 Ur Specific [place] 1.010 (1.002-1.030) 02/02/22 12:18 Urine Protein TRACE mg/dL (NEGATIVE) 02/02/22 12:18 Urine Glucose (UA) NEGATIVE mg/dL (NEGATIVE) 02/02/22 12:18 Urine Ketones NEGATIVE mg/dL (NEGATIVE) 02/02/22 12:18 Urine Occult Blood NEGATIVE (NEGATIVE) 02/02/22 12:18 Urine Nitrite NEGATIVE (NEGATIVE) 02/02/22 12:18 Urine Bilirubin NEGATIVE (NEGATIVE) 02/02/22 12:18 Urine Urobilinogen 0.2 (NORMAL) E.U./dL (NORMAL) 02/02/22 12:18 Ur Leukocyte Esterase NEGATIVE (NEGATIVE) 02/02/22 12:18 Ur Microscopic Review NOT INDICATED 02/02/22 12:18 Urine Culture Comments NOT INDICATED 02/02/22 12:18 SARS-CoV-2 (PCR) NOT DETECTED 02/02/22 12:30
[2022-02-04] MEDS: HYDROmorphone 0.5 MG/0.5 ML SYRINGE IVP PRN ×7 (00:27→23:46)
[2022-02-04] MEDS: LACTATED RINGERS 1,000 ML IV SCH ×3 (00:53→23:46)
[2022-02-04] MEDS: SODIUM CHLORIDE FLUSH 0.9% 10 ML SYRINGE IVP SCH ×3 (01:39→16:06)
[2022-02-04] MEDS: PANTOPRAZOLE 40 MG TABLET PO SCH (06:08)
[2022-02-04] MEDS: ESCITALOPRAM 10 MG TABLET PO SCH (07:51)
[2022-02-04] MEDS: amLODIPine 5 MG TABLET PO SCH (07:52)
[2022-02-04] MEDS: APIXABAN 5 MG TABLET PO SCH ×2 (07:52→20:46)
[2022-02-04] MEDS: SODIUM CHLORIDE FLUSH 0.9% 10 ML SYRINGE IVP PRN (10:54)
--- NOTE | 2022-02-04 17:26 | PROVIDER PROGRESS NOTE ---
Assessment/Plan - Problem List (1) Small bowel obstruction Assessment/Plan: His [facility] Nurse Assessor felt that his condition is not Crohn's disease per biopsy, thus steroids were not advised to be continued by GI . Since he had a liquid BM plus passed gas yesterday, and bowel sounds were audible yesterday, we tried to advance the diet to pureed but this has resulted in crampy abdominal pain. No ng tube was placed as there was no persistent vomiting Continue iv fluids, and allow oral meds We have ordered Dilaudid iv prn pain. Will de-escalate his diet to clear liquids. He was admitted to Inpatient status since he needs iv fluids and further bowel rest and monitoring. Will try to reach his GI, to discuss about steroids and any other recommendations. (2) IBD (inflammatory bowel disease) Conclusion/Plan: This is the Dx he carries, however, his GI was spoken to by Dr Albert from our ER, and said it is not Crohn's disease and no steroids were advised to be ordered for this current admission. Because of the findings at colonoscopy, done just 4 days before admission, an elective resection by surgery was advised, of the affected terminal ileum, in the future for this patient. (3) Factor V Leiden Conclusion/Plan: We are continuing his Eliquis dose (4) Hypertension Conclusion/Plan: He is prescribed to take Losartan and Amlodipine. We have resumed Amlodipine only, with parameters for holding it, given that he is not eating much and BP is not very high Qualifiers: Hypertension type: primary hypertension Qualified Code(s): I10 - Essential (primary) hypertension (5) Decreased mobility of joint of right side of pelvis Conclusion/Plan: Will give pain meds if needed (6) Umbilical hernia without obstruction or gangrene Conclusion/Plan: This is a chronic finding and the hernia is reducible (7) Morbid obesity with BMI of 45.0-49.9, adult Conclusion/Plan: As per Hx - Current Meds Current Meds: Current Medications Generic Name Dose Route Start Last Admin Trade Name Freq PRN Reason Stop Dose Admin Amlodipine Besylate 5 mg 02/03/22 09:00 02/04/22 07:52 Amlodipine 5 Mg Tablet PO 5 mg DAILY GAEL Administration Apixaban 5 mg 02/02/22 21:00 02/04/22 07:52 Apixaban 5 Mg Tablet PO 5 mg BID GAEL Administration Calcium Carbonate/Glycine 500 mg 02/03/22 08:06 02/03/22 17:54 Calcium Carbonate Chew 500 Mg Tablet PO 500 mg TID PRN Administration Heartburn Escitalopram Oxalate 20 mg 02/03/22 09:00 02/04/22 07:51 Escitalopram 10 Mg Tablet PO 20 mg DAILY GAEL Administration Hydromorphone HCl 0.5 mg 02/02/22 13:25 02/04/22 12:43 Hydromorphone 0.5 Mg/0.5 Ml Syringe IVP 0.5 mg Q2H PRN Administration Pain 8 to 10 Lactated Ringer's 1,000 mls @ 83.33 mls/hr 02/02/22 14:00 02/04/22 12:43 Lr IV 83.33 mls/hr .Q12H1M GAEL Administration Ondansetron HCl 4 mg 02/02/22 13:25 02/02/22 15:42 Ondansetron 4 Mg/2 Ml Vial IVP 4 mg Q6HR PRN Administration Nausea / Vomiting Pantoprazole Sodium 40 mg 02/03/22 08:06 02/04/22 06:08 Pantoprazole 40 Mg Tablet PO 40 mg QDAC GAEL Administration Sodium Chloride 10 ml 02/02/22 13:25 02/04/22 10:54 Sodium Chloride Flush 0.9% 10 Ml Syringe IVP 10 ml PRN PRN Administration NEEDED PER PROVIDER ORDERS Sodium Chloride 10 ml 02/02/22 17:00 02/04/22 16:06 Sodium Chloride Flush 0.9% 10 Ml Syringe IVP Not Given 0100,0900,1700 GAEL - Lab Result Fish Bone Diagrams: 02/06/22 05:00 02/06/22 05:00 - Additional Planning My Orders: My Active Orders 02/04/22 Lunch Clear Liquid Diet [DIET] Subjective - Subjective Patient Reports: Abdominal Pain, Pain Objective Vital Signs: Vital Signs - 24 hr 02/03/22 02/04/22 02/04/22 18:28 00:32 07:53 Temperature 36.6 C 36.6 C 36.5 C Heart Rate [ 83 73 68 Brachial] Respiratory 20 18 16 Rate Blood Pressure 134/65 H 126/67 116/74 [Right Brachial artery] O2 Saturation 94 97 97 02/04/22 02/04/22 12:20 15:38 Temperature 36.7 C 36.6 C Heart Rate [ 82 71 Brachial] Respiratory 16 20 Rate Blood Pressure 130/66 127/75 [Right Brachial artery] O2 Saturation 96 98 Oxygen O2 Source Room air I&O (Last 24 Hrs): Intake and Output Totals x24h 02/02/22 02/03/22 02/04/22 23:59 23:59 23:59 Intake Total 1462.5 3011.589 2543.815 Output Total 600 1425 1550 Balance 862.5 1586.589 993.815 General: Alert, Oriented x3 HEENT: Atraumatic, Mucous membr. moist/pink Neck: Supple, No JVD Neuro: Alert, Non Focal Cardiovascular: Regular rate, No murmurs Respiratory: No respiratory distress, Breath sounds nml Abdomen: Other (Distended with an umbilical hernia that is not tender, no bowel sounds in any quadrant, but no guarding or rebound.) Extremities: No clubbing, No edema Skin: No rashes - Results Results: Laboratory Results WBC 19.7 x10^3/uL (4.8-10.8) H 02/02/22 08:25 RBC 4.95 10^6/uL (4.70-6.10) 02/02/22 08:25 Hgb 13.5 g/dL (14.0-18.0) L 02/02/22 08:25 Hct 42.9 % (42.0-52.0) 02/02/22 08:25 MCV 86.7 fL (80.0-94.0) 02/02/22 08:25 MCH 27.3 pg (27.0-31.0) 02/02/22 08:25 MCHC 31.5 g/dL (32.0-36.0) L 02/02/22 08:25 RDW 15.8 % (12.0-15.0) H 02/02/22 08:25 Plt Count 434 10^3/uL (130-450) 02/02/22 08:25 MPV 9.0 fL (7.4-11.4) 02/02/22 08:25 Neut # (Auto) 17.3 10^3/uL (1.5-6.6) H 02/02/22 08:25 Lymph # (Auto) 1.1 10^3/uL (1.5-3.5) L 02/02/22 08:25 Iron # (Auto) 1.1 10^3/uL (0.0-1.0) H 02/02/22 08:25 Eos # (Auto) 0.1 10^3/uL (0.0-0.7) 02/02/22 08:25 Baso # (Auto) 0.0 10^3/uL (0.0-0.1) 02/02/22 08:25 Absolute Nucleated RBC 0.00 x10^3/uL 02/02/22 08:25 Nucleated RBC % 0.0 /100WBC 02/02/22 08:25 PT 14.0 secs (9.9-12.6) H 02/02/22 08:36 INR 1.3 (0.8-1.2) H 02/02/22 08:36 Sodium 135 mmol/L (135-145) 02/02/22 08:25 Potassium 3.8 mmol/L (3.5-5.0) 02/02/22 08:25 Chloride 98 mmol/L (101-111) L 02/02/22 08:25 Carbon Dioxide 25 mmol/L (21-32) 02/02/22 08:25 Anion Gap 12.0 (6-13) 02/02/22 08:25 BUN 13 mg/dL (6-20) 02/02/22 08:25 Creatinine 1.1 mg/dL (0.6-1.2) 02/02/22 08:25 Estimated GFR (MDRD) 71 (>89) L 02/02/22 08:25 Glucose 139 mg/dL (70-100) H 02/02/22 08:25 Lactic Acid 1.8 mmol/L (0.5-2.2) 02/02/22 08:36 Calcium 9.4 mg/dL (8.5-10.3) 02/02/22 08:25 Magnesium 2.0 mg/dL (1.7-2.8) 02/02/22 08:25 Total Bilirubin 1.9 mg/dL (0.2-1.0) H 02/02/22 08:25 AST 14 IU/L (10-42) 02/02/22 08:25 ALT 19 IU/L (10-60) 02/02/22 08:25 Alkaline Phosphatase 87 IU/L (42-121) 02/02/22 08:25 Total Protein 7.4 g/dL (6.7-8.2) 02/02/22 08:25 Albumin 3.7 g/dL (3.2-5.5) 02/02/22 08:25 Globulin 3.7 g/dL (2.1-4.2) 02/02/22 08:25 Albumin/Globulin Ratio 1.0 (1.0-2.2) 02/02/22 08:25 Lipase 23 U/L (22-51) 02/02/22 08:25 Urine Color DARK YELLOW 02/02/22 12:18 Urine Clarity CLEAR (CLEAR) 02/02/22 12:18 Urine pH 5.5 PH (5.0-7.5) 02/02/22 12:18 Ur Specific [place] 1.010 (1.002-1.030) 02/02/22 12:18 Urine Protein TRACE mg/dL (NEGATIVE) 02/02/22 12:18 Urine Glucose (UA) NEGATIVE mg/dL (NEGATIVE) 02/02/22 12:18 Urine Ketones NEGATIVE mg/dL (NEGATIVE) 02/02/22 12:18 Urine Occult Blood NEGATIVE (NEGATIVE) 02/02/22 12:18 Urine Nitrite NEGATIVE (NEGATIVE) 02/02/22 12:18 Urine Bilirubin NEGATIVE (NEGATIVE) 02/02/22 12:18 Urine Urobilinogen 0.2 (NORMAL) E.U./dL (NORMAL) 02/02/22 12:18 Ur Leukocyte Esterase NEGATIVE (NEGATIVE) 02/02/22 12:18 Ur Microscopic Review NOT INDICATED 02/02/22 12:18 Urine Culture Comments NOT INDICATED 02/02/22 12:18 SARS-CoV-2 (PCR) NOT DETECTED 02/02/22 12:30
[2022-02-05] MEDS: SODIUM CHLORIDE FLUSH 0.9% 10 ML SYRINGE IVP SCH ×3 (00:48→15:55)
[2022-02-05] MEDS: HYDROmorphone 0.5 MG/0.5 ML SYRINGE IVP PRN ×10 (03:15→22:26)
[2022-02-05] MEDS: PANTOPRAZOLE 40 MG TABLET PO SCH (05:51)
[2022-02-05] MEDS: amLODIPine 5 MG TABLET PO SCH (07:55)
[2022-02-05] MEDS: ESCITALOPRAM 10 MG TABLET PO SCH (07:55)
[2022-02-05] MEDS: APIXABAN 5 MG TABLET PO SCH ×2 (07:55→20:28)
[2022-02-05] MEDS: LACTATED RINGERS 1,000 ML IV SCH ×2 (11:27→22:17)
[2022-02-05 12:55] LABS: BASOPHILS % (AUTO) 0.2 %; EOSINOPHILS # (AUTO) 0.1 10^3/uL (0.0-0.7); EOSINOPHILS % (AUTO) 0.6 %; HCT - HEMATOCRIT 35.8 % (42.0-52.0); HGB - HEMOGLOBIN 10.8 g/dL (14.0-18.0); LYMPHOCYTES # (AUTO) 1.2 10^3/uL (1.5-3.5); LYMPHOCYTES % (AUTO) 11.8 %; MEAN CORPUSCULAR HEMOGLOBIN 27.1 pg (27.0-31.0); MEAN CORPUSCULAR HGB CONC 30.2 g/dL (32.0-36.0); MEAN CORPUSCULAR VOLUME 89.9 fL (80.0-94.0); MEAN PLATELET VOLUME 8.6 fL (7.4-11.4); MONOCYTES # (AUTO) 0.7 10^3/uL (0.0-1.0); MONOCYTES % (AUTO) 7.4 %; NEUTROPHILS # (AUTO) 7.9 10^3/uL (1.5-6.6); NEUTROPHILS % (AUTO) 79.9 %; PLT - PLATELET COUNT 344 10^3/uL (130-450); RED BLOOD COUNT 3.98 10^6/uL (4.70-6.10); RED CELL DISTRIBUTION WIDTH 15.3 % (12.0-15.0); WHITE BLOOD COUNT 9.9 x10^3/uL (4.8-10.8)
[2022-02-05 13:07] LABS: CREATININE 0.8 mg/dL (0.6-1.2); MAGNESIUM 1.9 mg/dL (1.7-2.8); POTASSIUM 3.4 mmol/L (3.5-5.0)
--- NOTE | 2022-02-05 19:19 | PROVIDER PROGRESS NOTE ---
Assessment/Plan - Problem List (1) Small bowel obstruction Assessment/Plan: The [employer], that our ED provider spoke to, felt that his condition is not Crohn's disease thus steroids were not advised by GI. The pt remembers being on steroids when hospitalized here 3 weeks ago, and he got be tter faster and would like us to contact his Credit Professional and discuss management. He cannot find the name of his GI specialist however, and will contact atiya who took him to last GI encounter. When we tried to advance his diet to pureed, this has resulted in crampy abdominal pain. No ng tube was placed as there has been no nausea or persistent vomiting Continue iv fluids, and allowing oral meds Continue Dilaudid iv prn pain. Diet continues on clear liquids. Will try to reach his GI, to discuss about steroids and any other recommendations. (2) IBD (inflammatory bowel disease) Conclusion/Plan: This is the Dx he carries, however, the Credit Professional that was spoken to by Dr Albert from our ER, said it is not Crohn's disease and no steroids were advised to be ordered for this current admission. Because of the findings at colonoscopy, done just 4 days before this admission, an elective resection by surgery was advised in the future for this patient. (3) Factor V Leiden Conclusion/Plan: We are continuing his Eliquis dose (4) Hypertension Conclusion/Plan: He is prescribed to take Losartan and Amlodipine. We have resumed Amlodipine only, with parameters for holding it, given that he is not eating much and BP is not very high Qualifiers: Hypertension type: primary hypertension Qualified Code(s): I10 - Essential (primary) hypertension (5) Decreased mobility of joint of right side of pelvis Conclusion/Plan: Will give other pain meds if needed (6) Umbilical hernia without obstruction or gangrene Conclusion/Plan: This is a chronic finding and the hernia is reducible (7) Morbid obesity with BMI of 45.0-49.9, adult Conclusion/Plan: As per Hx - Current Meds Current Meds: Current Medications Generic Name Dose Route Start Last Admin Trade Name Freq PRN Reason Stop Dose Admin Amlodipine Besylate 5 mg 02/03/22 09:00 02/05/22 07:55 Amlodipine 5 Mg Tablet PO 5 mg DAILY GAEL Administration Apixaban 5 mg 02/02/22 21:00 02/05/22 07:55 Apixaban 5 Mg Tablet PO 5 mg BID GAEL Administration Calcium Carbonate/Glycine 500 mg 02/03/22 08:06 02/03/22 17:54 Calcium Carbonate Chew 500 Mg Tablet PO 500 mg TID PRN Administration Heartburn Escitalopram Oxalate 20 mg 02/03/22 09:00 02/05/22 07:55 Escitalopram 10 Mg Tablet PO 20 mg DAILY GAEL Administration Hydromorphone HCl 0.5 mg 02/02/22 13:25 02/05/22 18:25 Hydromorphone 0.5 Mg/0.5 Ml Syringe IVP 0.5 mg Q2H PRN Administration Pain 8 to 10 Lactated Ringer's 1,000 mls @ 83.33 mls/hr 02/02/22 14:00 02/05/22 14:10 Lr IV 83.33 mls/hr .Q12H1M GAEL Infusion Ondansetron HCl 4 mg 02/02/22 13:25 02/02/22 15:42 Ondansetron 4 Mg/2 Ml Vial IVP 4 mg Q6HR PRN Administration Nausea / Vomiting Pantoprazole Sodium 40 mg 02/03/22 08:06 02/05/22 05:51 Pantoprazole 40 Mg Tablet PO 40 mg QDAC GAEL Administration Sodium Chloride 10 ml 02/02/22 13:25 02/04/22 10:54 Sodium Chloride Flush 0.9% 10 Ml Syringe IVP 10 ml PRN PRN Administration NEEDED PER PROVIDER ORDERS Sodium Chloride 10 ml 02/02/22 17:00 02/05/22 15:55 Sodium Chloride Flush 0.9% 10 Ml Syringe IVP Not Given 0100,0900,1700 GAEL - Lab Result Fish Bone Diagrams: 02/06/22 05:00 02/06/22 05:00 - Additional Planning My Orders: My Active Orders 02/06/22 05:00 BMP - BASIC METABOLIC PANEL [CHEM] DAILYLAB CBC - COMP BLD CT W/AUTO DIFF [HEME] DAILYLAB 02/07/22 05:00 BMP - BASIC METABOLIC PANEL [CHEM] DAILYLAB CBC - COMP BLD CT W/AUTO DIFF [HEME] DAILYLAB 02/08/22 05:00 BMP - BASIC METABOLIC PANEL [CHEM] DAILYLAB CBC - COMP BLD CT W/AUTO DIFF [HEME] DAILYLAB Subjective - Subjective Patient Reports: Abdominal Pain (The clear liquid diet is causing less pain but still gets spasms of diffuse abdominal pain, did pass gas, no BMs) Objective Vital Signs: Vital Signs - 24 hr 02/04/22 02/05/22 02/05/22 23:39 07:47 15:41 Temperature 36.7 C 37 C 37.1 C Heart Rate [ 70 71 79 Brachial] Respiratory 18 19 20 Rate Blood Pressure 115/76 127/74 141/77 H [Right Brachial artery] O2 Saturation 95 95 95 Oxygen O2 Source Room air I&O (Last 24 Hrs): Intake and Output Totals x24h 02/03/22 02/04/22 02/05/22 23:59 23:59 23:59 Intake Total 3011.589 4144.612 2668.563 Output Total 1425 2575 2050 Balance 5151.902 4482.612 618.563 General: Alert, Oriented x3, Mild distress, Other (Obese white male) HEENT: Mucous membr. moist/pink Neck: Supple Neuro: Alert, Non Focal Cardiovascular: Regular rate, No murmurs Respiratory: No respiratory distress Abdomen: Other (Distende and small nontender umbilical hernia, has bowel sounds in LUQ only, no guarding or rebound) Extremities: No clubbing, No edema, No tenderness/swelling Skin: No rashes - Results Results: Laboratory Results WBC 9.9 x10^3/uL (4.8-10.8) 02/05/22 12:49 RBC 3.98 10^6/uL (4.70-6.10) L 02/05/22 12:49 Hgb 10.8 g/dL (14.0-18.0) L 02/05/22 12:49 Hct 35.8 % (42.0-52.0) L 02/05/22 12:49 MCV 89.9 fL (80.0-94.0) 02/05/22 12:49 MCH 27.1 pg (27.0-31.0) 02/05/22 12:49 MCHC 30.2 g/dL (32.0-36.0) L 02/05/22 12:49 RDW 15.3 % (12.0-15.0) H 02/05/22 12:49 Plt Count 344 10^3/uL (130-450) 02/05/22 12:49 MPV 8.6 fL (7.4-11.4) 02/05/22 12:49 Neut # (Auto) 7.9 10^3/uL (1.5-6.6) H 02/05/22 12:49 Lymph # (Auto) 1.2 10^3/uL (1.5-3.5) L 02/05/22 12:49 [place] # (Auto) 0.7 10^3/uL (0.0-1.0) 02/05/22 12:49 Eos # (Auto) 0.1 10^3/uL (0.0-0.7) 02/05/22 12:49 Baso # (Auto) 0.0 10^3/uL (0.0-0.1) 02/05/22 12:49 Absolute Nucleated RBC 0.00 x10^3/uL 02/05/22 12:49 Nucleated RBC % 0.0 /100WBC 02/05/22 12:49 PT 14.0 secs (9.9-12.6) H 02/02/22 08:36 INR 1.3 (0.8-1.2) H 02/02/22 08:36 Sodium 137 mmol/L (135-145) 02/05/22 12:49 Potassium 3.4 mmol/L (3.5-5.0) L 02/05/22 12:49 Chloride 98 mmol/L (101-111) L 02/05/22 12:49 Carbon Dioxide 29 mmol/L (21-32) 02/05/22 12:49 Anion Gap 10.0 (6-13) 02/05/22 12:49 BUN 10 mg/dL (6-20) 02/05/22 12:49 Creatinine 0.8 mg/dL (0.6-1.2) 02/05/22 12:49 Estimated GFR (MDRD) 102 (>89) 02/05/22 12:49 Glucose 118 mg/dL (70-100) H 02/05/22 12:49 Lactic Acid 1.8 mmol/L (0.5-2.2) 02/02/22 08:36 Calcium 8.0 mg/dL (8.5-10.3) L 02/05/22 12:49 Magnesium 1.9 mg/dL (1.7-2.8) 02/05/22 12:49 Total Bilirubin 1.9 mg/dL (0.2-1.0) H 02/02/22 08:25 AST 14 IU/L (10-42) 02/02/22 08:25 ALT 19 IU/L (10-60) 02/02/22 08:25 Alkaline Phosphatase 87 IU/L (42-121) 02/02/22 08:25 Total Protein 7.4 g/dL (6.7-8.2) 02/02/22 08:25 Albumin 3.7 g/dL (3.2-5.5) 02/02/22 08:25 Globulin 3.7 g/dL (2.1-4.2) 02/02/22 08:25 Albumin/Globulin Ratio 1.0 (1.0-2.2) 02/02/22 08:25 Lipase 23 U/L (22-51) 02/02/22 08:25 Urine Color DARK YELLOW 02/02/22 12:18 Urine Clarity CLEAR (CLEAR) 02/02/22 12:18 Urine pH 5.5 PH (5.0-7.5) 02/02/22 12:18 Ur Specific [place] 1.010 (1.002-1.030) 02/02/22 12:18 Urine Protein TRACE mg/dL (NEGATIVE) 02/02/22 12:18 Urine Glucose (UA) NEGATIVE mg/dL (NEGATIVE) 02/02/22 12:18 Urine Ketones NEGATIVE mg/dL (NEGATIVE) 02/02/22 12:18 Urine Occult Blood NEGATIVE (NEGATIVE) 02/02/22 12:18 Urine Nitrite NEGATIVE (NEGATIVE) 02/02/22 12:18 Urine Bilirubin NEGATIVE (NEGATIVE) 02/02/22 12:18 Urine Urobilinogen 0.2 (NORMAL) E.U./dL (NORMAL) 02/02/22 12:18 Ur Leukocyte Esterase NEGATIVE (NEGATIVE) 02/02/22 12:18 Ur Microscopic Review NOT INDICATED 02/02/22 12:18 Urine Culture Comments NOT INDICATED 02/02/22 12:18 SARS-CoV-2 (PCR) NOT DETECTED 02/02/22 12:30
[2022-02-05] MEDS: ONDANSETRON 4 MG/2 ML VIAL IVP PRN (20:34)
[2022-02-06] MEDS: HYDROmorphone 0.5 MG/0.5 ML SYRINGE IVP PRN ×10 (00:27→22:45)
[2022-02-06] MEDS: SODIUM CHLORIDE FLUSH 0.9% 10 ML SYRINGE IVP SCH ×3 (01:44→16:28)
[2022-02-06] MEDS: PANTOPRAZOLE 40 MG TABLET PO SCH (04:07)
[2022-02-06 05:09] LABS: BASOPHILS % (AUTO) 0.2 %; EOSINOPHILS # (AUTO) 0.1 10^3/uL (0.0-0.7); EOSINOPHILS % (AUTO) 1.7 %; HCT - HEMATOCRIT 34.8 % (42.0-52.0); HGB - HEMOGLOBIN 10.4 g/dL (14.0-18.0); LYMPHOCYTES # (AUTO) 1.3 10^3/uL (1.5-3.5); LYMPHOCYTES % (AUTO) 23.1 %; MEAN CORPUSCULAR HEMOGLOBIN 26.6 pg (27.0-31.0); MEAN CORPUSCULAR HGB CONC 29.9 g/dL (32.0-36.0); MEAN PLATELET VOLUME 8.4 fL (7.4-11.4); MONOCYTES # (AUTO) 0.6 10^3/uL (0.0-1.0); NEUTROPHILS # (AUTO) 3.7 10^3/uL (1.5-6.6); NEUTROPHILS % (AUTO) 63.7 %; PLT - PLATELET COUNT 316 10^3/uL (130-450); RED BLOOD COUNT 3.91 10^6/uL (4.70-6.10); RED CELL DISTRIBUTION WIDTH 15.7 % (12.0-15.0); WHITE BLOOD COUNT 5.8 x10^3/uL (4.8-10.8)
[2022-02-06 05:22] LABS: CALCIUM 8.2 mg/dL (8.5-10.3); CREATININE 0.8 mg/dL (0.6-1.2); POTASSIUM 3.6 mmol/L (3.5-5.0)
[2022-02-06] MEDS: ESCITALOPRAM 10 MG TABLET PO SCH (08:01)
[2022-02-06] MEDS: APIXABAN 5 MG TABLET PO SCH ×2 (08:01→20:36)
[2022-02-06] MEDS: amLODIPine 5 MG TABLET PO SCH (08:02)
[2022-02-06] MEDS: LACTATED RINGERS 1,000 ML IV SCH ×2 (10:12→22:44)
--- NOTE | 2022-02-06 12:12 | PROVIDER PROGRESS NOTE ---
Assessment/Plan - Problem List (1) Small bowel obstruction Assessment/Plan: 02/06 I tried to call twice .Bri Mars, Pt's GI provider, but no one picked up the phone. I discussed the care plan with pt, we tried to advance his diet to full liquid diet to see if he can tolerate. After pt ate his lunch, full liquid diet, pt report he had mild abdominal cramp otherwise he tolerated now. continue pain control, and PPI, and IVF. (2) Factor V Leiden Conclusion/Plan: stable, continue his home Eliquis dose (3) Hypertension stable, continue home Amlodipine. (4) Decreased mobility of joint of right side of pelvis he is both sides but is mainly on the right side because of the loose screw, Will continue pain meds if needed (5) Umbilical hernia without obstruction or gangrene This is a chronic condition, pt had CT of abdomen/pelvis at the admission. (6) Morbid obesity with BMI of 45.0-49.9, adult Conclusion/Plan: As pt's hx, advise pt safely loss of his weight. - Current Meds Current Meds: Current Medications Generic Name Dose Route Start Last Admin Trade Name Freq PRN Reason Stop Dose Admin Amlodipine Besylate 5 mg 02/03/22 09:00 02/06/22 08:02 Amlodipine 5 Mg Tablet PO 5 mg DAILY GAEL Administration Apixaban 5 mg 02/02/22 21:00 02/06/22 08:01 Apixaban 5 Mg Tablet PO 5 mg BID GAEL Administration Calcium Carbonate/Glycine 500 mg 02/03/22 08:06 02/03/22 17:54 Calcium Carbonate Chew 500 Mg Tablet PO 500 mg TID PRN Administration Heartburn Escitalopram Oxalate 20 mg 02/03/22 09:00 02/06/22 08:01 Escitalopram 10 Mg Tablet PO 20 mg DAILY GAEL Administration Hydromorphone HCl 0.5 mg 02/02/22 13:25 02/06/22 12:07 Hydromorphone 0.5 Mg/0.5 Ml Syringe IVP 0.5 mg Q2H PRN Administration Pain 8 to 10 Lactated Ringer's 1,000 mls @ 83.33 mls/hr 02/02/22 14:00 02/06/22 10:12 Lr IV 83.33 mls/hr .Q12H1M GAEL Administration Ondansetron HCl 4 mg 02/02/22 13:25 02/05/22 20:34 Ondansetron 4 Mg/2 Ml Vial IVP 4 mg Q6HR PRN Administration Nausea / Vomiting Pantoprazole Sodium 40 mg 02/03/22 08:06 02/06/22 04:07 Pantoprazole 40 Mg Tablet PO 40 mg QDAC GAEL Administration Sodium Chloride 10 ml 02/02/22 13:25 02/04/22 10:54 Sodium Chloride Flush 0.9% 10 Ml Syringe IVP 10 ml PRN PRN Administration NEEDED PER PROVIDER ORDERS Sodium Chloride 10 ml 02/02/22 17:00 02/06/22 08:02 Sodium Chloride Flush 0.9% 10 Ml Syringe IVP Not Given 0100,0900,1700 GAEL - Lab Result Fish Bone Diagrams: 02/06/22 05:00 02/06/22 05:00 - Additional Planning My Orders: My Active Orders 02/06/22 Lunch Full Liquid Diet [DIET] Subjective - Subjective Patient Reports: Feeling Better, Resting Comfortably Objective Vital Signs: Vital Signs - 24 hr 02/05/22 02/06/22 02/06/22 15:41 00:05 08:00 Temperature 37.1 C 36.6 C 36.5 C Heart Rate [ 79 77 66 Brachial] Respiratory 20 18 19 Rate Blood Pressure 128/78 [Left Brachial artery] Blood Pressure 141/77 H 130/85 H [Right Brachial artery] O2 Saturation 95 95 98 Oxygen O2 Source Room air I&O (Last 24 Hrs): Intake and Output Totals x24h 02/04/22 02/05/22 02/06/22 23:59 23:59 23:59 Intake Total 4144.612 3694.925 1553.016 Output Total 2575 2350 700 Balance 9884.995 0571.925 853.016 General: Alert, Oriented x3, No acute distress HEENT: Atraumatic Neck: Supple Lymphatic: no adenopathy Neuro: Alert, Non Focal, Oriented Times 3 Cardiovascular: Regular rate, Normal S1, Normal S2 Respiratory: Chest non-tender, No respiratory distress Abdomen: Normal bowel sounds, Soft Extremities: Normal pulses - Results Results: Laboratory Results WBC 5.8 x10^3/uL (4.8-10.8) 02/06/22 05:00 RBC 3.91 10^6/uL (4.70-6.10) L 02/06/22 05:00 Hgb 10.4 g/dL (14.0-18.0) L 02/06/22 05:00 Hct 34.8 % (42.0-52.0) L 02/06/22 05:00 MCV 89.0 fL (80.0-94.0) 02/06/22 05:00 MCH 26.6 pg (27.0-31.0) L 02/06/22 05:00 MCHC 29.9 g/dL (32.0-36.0) L 02/06/22 05:00 RDW 15.7 % (12.0-15.0) H 02/06/22 05:00 Plt Count 316 10^3/uL (130-450) 02/06/22 05:00 MPV 8.4 fL (7.4-11.4) 02/06/22 05:00 Neut # (Auto) 3.7 10^3/uL (1.5-6.6) 02/06/22 05:00 Lymph # (Auto) 1.3 10^3/uL (1.5-3.5) L 02/06/22 05:00 [place] # (Auto) 0.6 10^3/uL (0.0-1.0) 02/06/22 05:00 Eos # (Auto) 0.1 10^3/uL (0.0-0.7) 02/06/22 05:00 Baso # (Auto) 0.0 10^3/uL (0.0-0.1) 02/06/22 05:00 Absolute Nucleated RBC 0.00 x10^3/uL 02/06/22 05:00 Nucleated RBC % 0.0 /100WBC 02/06/22 05:00 PT 14.0 secs (9.9-12.6) H 02/02/22 08:36 INR 1.3 (0.8-1.2) H 02/02/22 08:36 Sodium 139 mmol/L (135-145) 02/06/22 05:00 Potassium 3.6 mmol/L (3.5-5.0) 02/06/22 05:00 Chloride 102 mmol/L (101-111) 02/06/22 05:00 Carbon Dioxide 30 mmol/L (21-32) 02/06/22 05:00 Anion Gap 7.0 (6-13) 02/06/22 05:00 BUN 10 mg/dL (6-20) 02/06/22 05:00 Creatinine 0.8 mg/dL (0.6-1.2) 02/06/22 05:00 Estimated GFR (MDRD) 102 (>89) 02/06/22 05:00 Glucose 107 mg/dL (70-100) H 02/06/22 05:00 Lactic Acid 1.8 mmol/L (0.5-2.2) 02/02/22 08:36 Calcium 8.2 mg/dL (8.5-10.3) L 02/06/22 05:00 Magnesium 1.9 mg/dL (1.7-2.8) 02/05/22 12:49 Total Bilirubin 1.9 mg/dL (0.2-1.0) H 02/02/22 08:25 AST 14 IU/L (10-42) 02/02/22 08:25 ALT 19 IU/L (10-60) 02/02/22 08:25 Alkaline Phosphatase 87 IU/L (42-121) 02/02/22 08:25 Total Protein 7.4 g/dL (6.7-8.2) 02/02/22 08:25 Albumin 3.7 g/dL (3.2-5.5) 02/02/22 08:25 Globulin 3.7 g/dL (2.1-4.2) 02/02/22 08:25 Albumin/Globulin Ratio 1.0 (1.0-2.2) 02/02/22 08:25 Lipase 23 U/L (22-51) 02/02/22 08:25 Urine Color DARK YELLOW 02/02/22 12:18 Urine Clarity CLEAR (CLEAR) 02/02/22 12:18 Urine pH 5.5 PH (5.0-7.5) 02/02/22 12:18 Ur Specific [place] 1.010 (1.002-1.030) 02/02/22 12:18 Urine Protein TRACE mg/dL (NEGATIVE) 02/02/22 12:18 Urine Glucose (UA) NEGATIVE mg/dL (NEGATIVE) 02/02/22 12:18 Urine Ketones NEGATIVE mg/dL (NEGATIVE) 02/02/22 12:18 Urine Occult Blood NEGATIVE (NEGATIVE) 02/02/22 12:18 Urine Nitrite NEGATIVE (NEGATIVE) 02/02/22 12:18 Urine Bilirubin NEGATIVE (NEGATIVE) 02/02/22 12:18 Urine Urobilinogen 0.2 (NORMAL) E.U./dL (NORMAL) 02/02/22 12:18 Ur Leukocyte Esterase NEGATIVE (NEGATIVE) 02/02/22 12:18 Ur Microscopic Review NOT INDICATED 02/02/22 12:18 Urine Culture Comments NOT INDICATED 02/02/22 12:18 SARS-CoV-2 (PCR) NOT DETECTED 02/02/22 12:30 ABX Reporting Has patient been on IV antibiotics over the past 48 hours?: No Current Medications - Current Medications Current Medications: Active Medications Amlodipine Besylate (Amlodipine 5 Mg Tablet) 5 mg PO DAILY [facility] Last Admin: 02/06/22 08:02 Dose: 5 mg Apixaban (Apixaban 5 Mg Tablet) 5 mg PO BID [facility] Last Admin: 02/06/22 08:01 Dose: 5 mg Calcium Carbonate/Glycine (Calcium Carbonate Chew 500 Mg Tablet) 500 mg PO TID PRN PRN Reason: Heartburn Last Admin: 02/03/22 17:54 Dose: 500 mg Escitalopram Oxalate (Escitalopram 10 Mg Tablet) 20 mg PO DAILY [facility] Last Admin: 02/06/22 08:01 Dose: 20 mg Hydromorphone HCl (Hydromorphone 0.5 Mg/0.5 Ml Syringe) 0.5 mg IVP Q2H PRN PRN Reason: Pain 8 to 10 Last Admin: 02/06/22 12:07 Dose: 0.5 mg Lactated Ringer's (Lr) 1,000 mls @ 83.33 mls/hr IV .Q12H1M [facility] Last Admin: 02/06/22 10:12 Dose: 83.33 mls/hr Ondansetron HCl (Ondansetron 4 Mg/2 Ml Vial) 4 mg IVP Q6HR PRN PRN Reason: Nausea / Vomiting Last Admin: 02/05/22 20:34 Dose: 4 mg Pantoprazole Sodium (Pantoprazole 40 Mg Tablet) 40 mg PO QDAC [facility] Last Admin: 02/06/22 04:07 Dose: 40 mg Prochlorperazine Edisylate (Prochlorperazine 10 Mg/2 Ml Vial) 10 mg IVP Q6HR PRN PRN Reason: Nausea / Vomiting Sodium Chloride (Sodium Chloride Flush 0.9% 10 Ml Syringe) 10 ml IVP PRN PRN PRN Reason: NEEDED PER PROVIDER ORDERS Last Admin: 02/04/22 10:54 Dose: 10 ml Sodium Chloride (Sodium Chloride Flush 0.9% 10 Ml Syringe) 10 ml IVP 0100,0900,1700 GAEL Last Admin: 02/06/22 08:02 Dose: Not Given Apixaban [Eliquis] 5 mg PO BID 01/15/22 Atorvastatin Calcium 40 mg PO QPM 01/15/22 Escitalopram Oxalate [Lexapro] 20 mg PO DAILY 01/15/22 Lisinopril [Zestril] 40 mg PO DAILY 01/15/22 amLODIPine [Norvasc] 5 mg PO DAILY 01/15/22
[2022-02-06] MEDS: SODIUM CHLORIDE FLUSH 0.9% 10 ML SYRINGE IVP PRN ×3 (18:35→22:46)
[2022-02-07] MEDS: HYDROmorphone 0.5 MG/0.5 ML SYRINGE IVP PRN ×6 (00:32→14:58)
[2022-02-07] MEDS: SODIUM CHLORIDE FLUSH 0.9% 10 ML SYRINGE IVP SCH ×2 (00:32→07:33)
[2022-02-07 05:21] LABS: BASOPHILS % (AUTO) 0.1 %; EOSINOPHILS # (AUTO) 0.1 10^3/uL (0.0-0.7); EOSINOPHILS % (AUTO) 1.8 %; HCT - HEMATOCRIT 36.1 % (42.0-52.0); LYMPHOCYTES # (AUTO) 1.3 10^3/uL (1.5-3.5); LYMPHOCYTES % (AUTO) 19.3 %; MEAN CORPUSCULAR HEMOGLOBIN 26.8 pg (27.0-31.0); MEAN CORPUSCULAR HGB CONC 30.5 g/dL (32.0-36.0); MEAN PLATELET VOLUME 8.8 fL (7.4-11.4); MONOCYTES # (AUTO) 0.7 10^3/uL (0.0-1.0); MONOCYTES % (AUTO) 10.1 %; NEUTROPHILS # (AUTO) 4.6 10^3/uL (1.5-6.6); NEUTROPHILS % (AUTO) 68.3 %; PLT - PLATELET COUNT 356 10^3/uL (130-450); RED CELL DISTRIBUTION WIDTH 15.4 % (12.0-15.0); WHITE BLOOD COUNT 6.7 x10^3/uL (4.8-10.8)
[2022-02-07 05:31] LABS: CALCIUM 8.1 mg/dL (8.5-10.3); CREATININE 0.9 mg/dL (0.6-1.2); POTASSIUM 3.6 mmol/L (3.5-5.0)
[2022-02-07] MEDS: PANTOPRAZOLE 40 MG TABLET PO SCH (06:46)
[2022-02-07] MEDS: APIXABAN 5 MG TABLET PO SCH (07:32)
[2022-02-07] MEDS: ESCITALOPRAM 10 MG TABLET PO SCH (07:32)
[2022-02-07] MEDS: amLODIPine 5 MG TABLET PO SCH (07:32)
[2022-02-07 08:44] VITALS: BP 132/83
[2022-02-07] MEDS: LACTATED RINGERS 1,000 ML IV SCH (09:59)
--- NOTE | 2022-02-07 14:10 | Discharge Plan ---
Discharge Plan Problem Reviewed?: Yes Disposition: Home, Self Care Condition: Stable Prescriptions: oxyCODONE [Roxicodone] 5 mg PO Q4H PRN #20 tablet PRN Reason: Abdominal Pain Diet: Soft Activity Restrictions: Activity as Tolerated Shower Restrictions: No (fall precaution) Instruction Topics: Abdominal Pain, Oxycodone tablets or capsules Health Concerns: You tolerated diet, and you had bowel movements, and your abdominal pain is under of control. You may avoid of taking Alcohol, butter, carbonated beverages, Coffee, dairy products, fatty food, and food high in fiber. You may followup with your GI and have surgeon to assess for you DANNY. Plan of Treatment: as the above. Care Goals: Stabilization and improvement of your medical conditions Assessment: Discussed the care plan with you, answered your questions, you understood and agreed Additional Instructions or Follow Up instructions: You may follow-up with your PCP in 1 to 2 weeks, follow-up with your surgeon as soon as possible, You may follow-up with your GI provider as out-pt. Should your symptoms return or worsen, you may present to the ER or call 911 for help No Smoking: If you smoke, Please STOP! Call for help.
--- NOTE | 2022-02-07 14:19 | DISCHARGE SUMMARY ---
Discharge Summary Admit Date: 02/02/22 Discharge Date: 02/07/22 Discharging Provider: Wilder Garcia Condition at Discharge: Stable Discharge Disposition: 01 Home, Self Care Discharge Facility Name: home - DIAGNOSES Discharge Diagnoses with Status of Each Condition: (1) Small bowel obstruction pt had bowel movement. pt tolerated regular diet, his abdominal pain is under of control. advise pt make an appointment to followup with his surgeon and followup with his GI provider. I tried to call twice his GI provider to discuss pt's care but nobody picked up phone. pt is prescribed short term Pain medication oxycodone as needed. (2) Factor V Leiden Conclusion/Plan: stable, continue his home Eliquis dose (3) Hypertension stable, continue home meds (4) Decreased mobility of joint of right side of pelvis stable (5) Umbilical hernia without obstruction or gangrene stable (6) Morbid obesity with BMI of 45.0-49.9, adult As pt's hx, advise pt safely loss of his weight. - HPI History of Present Illness: refer from Dr. Johanny Sue's HPI on 02/02/22 This is a 51-year-old white male with a history of morbid obesity, Factor V Leiden disease for which he is on Eliquis, Hx of HTN, and some type of inflammatory bowel disease. He was a remote meth user and alcohol abuser and smoker, all of which he quit >20 years ago. He lives with extended family members. He was admitted here 3 weeks ago for small bowel obstruction, and improved in 24 hours with bowel rest and steroids and his diet was advanced which he tolerated. Four days ago he saw his Emergency Detail Driver at [facility] EGD and colonoscopy. He states the EGD was normal. The colonoscopy showed polyps that were biopsied and were nonmalignant. There was a finding in the distal ileum of inflammation, he says the biopsy shouwed no Crohn's disease. The recommendation of his Emergency Detail Driver after colonoscopy was that he undergo elective surgical removal of that portion of the inflamed bowel, which she has not yet scheduled. The patient awoke today with similar crampy abdominal pain, nausea and vomiting that he had 3 weeks ago. There was no fever or diarrhea and no bleeding. He presented to the ED. CT scan showed partial small bowel obstruction with transition point in the distal small bowel. He was given antiemetics and started on IV fluids and received IV pain meds. No NG tube was placed as there was not persistent nausea and vomiting. He was presented to the Hospitalist team for management of his recurrent small bowel obstruction. I requested that Dr. Albert in the ED reach out to his Emergency Detail Driver at [facility] to determine if the patient should be transferred there for any specific management. His [facility] Emergency Detail Driver called back and advised Dr Albert that the pt could be treated here with bowel rest, IV fluids, antiemetics, pain meds and not necessary to give him steroids. Alos, no transfer was necessary. - ALLERGIES Allergies/Adverse Reactions: Allergies Allergy/AdvReac Type Severity Reaction Status Date / Time No Known Drug Allergies Allergy Verified 02/02/22 09:19 - MEDICATIONS Home Medications: Ambulatory Orders Medication Instructions Recorded Confirmed Apixaban [Eliquis] 5 mg PO BID 01/15/22 02/02/22 Atorvastatin Calcium 40 mg PO QPM 01/15/22 02/02/22 Escitalopram Oxalate [Lexapro] 20 mg PO DAILY 01/15/22 02/02/22 Lisinopril [Zestril] 40 mg PO DAILY 01/15/22 02/02/22 amLODIPine [Norvasc] 5 mg PO DAILY 01/15/22 02/02/22 oxyCODONE [Roxicodone] 5 mg PO Q4H PRN #20 tablet 02/07/22 - PHYSICAL EXAM AT DISCHARGE General Appearance: positive: No acute distress, Alert. negative: Lethargic Eyes Bilateral: positive: Normal inspection, No lid inflammation ENT: positive: ENT inspection nml, No signs of dehydration. negative: Purulent nasal drainage Neck: positive: Nml inspection, Trachea midline. negative: Tracheal deviation Respiratory: positive: Chest non-tender, No respiratory distress. negative: Wheezes Cardiovascular: positive: Regular rate & rhythm. negative: Tachycardia, Bradycardia, Systolic murmur Peripheral Pulses: positive: 2+ Abdomen: positive: Non-tender, Nml bowel sounds, No distention. negative: Tende rness Back: positive: Nml inspection Skin: positive: Color nml, Warm, Dry. negative: Cyanosis Extremities: positive: Non-tender, Full ROM, Nml appearance Neurologic/Psychiatric: positive: Oriented x3, Motor nml, Sensation nml. negative: Weakness, Sensory loss, Facial droop, Slurred/abnml speech, Depressed mood/affect - LABS Result Diagrams: 02/07/22 05:08 02/07/22 05:08 - FOLLOW UP Follow Up: You tolerated diet, and you had bowel movements, and your abdominal pain is under of control. You may avoid of taking Alcohol, butter, carbonated beverages, Coffee, dairy products, fatty food, and food high in fiber. You may followup with your GI and have surgeon to assess for you DANNY. You may follow-up with your PCP in 1 to 2 weeks, follow-up with your surgeon as soon as possible, You may follow-up with your GI provider as out-pt. Should your symptoms return or worsen, you may present to the ER or call 911 for help - TIME SPENT Time Spent in Discharge (Minutes): 30
== END 2022-02-07 16:36 | disposition home or self-care (01) | DRG 389 ==
LOC: ED 07:59 → MS2 13:25 → OBSVTOIN 02-04 10:24
PROVIDERS: ADMIT Internal Medicine; ATTEND Nurse Practitioner Gerontology
DX: K56.600 Partial intestinal obstruction, unspecified as to cause (principal); D68.51 Activated protein C resistance; Z68.42 Body mass index [BMI] 45.0-49.9, adult; I10 Essential (primary) hypertension; K42.9 Umbilical hernia without obstruction or gangrene; E66.01 Morbid (severe) obesity due to excess calories; Z20.822 Contact with and (suspected) exposure to COVID-19; M25.551 Pain in right hip; M25.552 Pain in left hip; G89.29 Other chronic pain; K58.9 Irritable bowel syndrome, unspecified; Z79.01 Long term (current) use of anticoagulants; Z87.891 Personal history of nicotine dependence
CPT/HCPCS: 36415; 74177; 80048; 80053; 81003; 83605; 83690; 83735; 85025; 85610; 85651; 86140; 87635; 96374; 96375; 96376; 99283; 99285; A9270; G0378; J1170; J7120; Q9967; 81001; 87086